=== PATIENT | female | born 1970 ===

== ENCOUNTER 2018-10-15 13:06 | Outpatient (CLI) | payer BC | END 2018-10-15 13:07 | disposition home or self-care (01) | LOC: RAD 13:06 ==

== ENCOUNTER 2018-11-07 03:17 | Emergency (ER) | payer BC ==
[2018-11-07 03:41] VITALS: RESP 18
[2018-11-07 04:02] LABS: PH,URINE 5.5 (4.7-8.0); URINE BILIRUBIN NEGATIVE (NEGATIVE); URINE BLOOD LARGE (NEGATIVE); URINE GLUCOSE (UA) 100 mg/dL (NEGATIVE); URINE LEUKOCYTE ESTERASE MODERATE Leu/uL (NEGATIVE); URINE PROTEIN 100 mg/dL (<30 mg/dL)
[2018-11-07 04:09] LABS: URINE APPEARANCE SL CLOUDY (CLEAR); URINE COLOR AMBER (YELLOW)
--- NOTE | 2018-11-07 04:14 | ED PDOC ---
Arrival/HPI - General Chief Complaint: Female Genitourinary Time Seen by Provider: 11/07/18 03:58 Historian: Patient - History of Present Illness Narrative History of Present Illness (Text): 11/07/18 04:13 Evelyn Contreras is a 48 year old female, whose past medical history includes asthma, who presents to the Emergency department accompanied by relative complaining of dysuria. Patient states, via relative acting as lap regulator, she has been experiencing dysuria with associated hematuria. Patient denies any fever, chills, nausea, vomiting, diarrhea, back pain, or any other complaints. Symptom Onset: Gradual Symptom Course: Unchanged Activities at Onset: Light Context: Home Past Medical History - Provider Review Nursing Documentation Reviewed: Yes - Infectious Disease Hx of Infectious Diseases: None - Reproductive Menopause: No Currently : No - Cardiac Hx Cardiac Disorders: No - Pulmonary Hx Respiratory Disorders: Yes Hx Asthma: Yes - Neurological Hx Neurological Disorder: No - HEENT Hx HEENT Disorder: No - Renal Hx Renal Disorder: No - Endocrine/Metabolic Hx Endocrine Disorders: No - Hematological/Oncological Hx Blood Disorders: No - Integumentary Hx Dermatological Disorder: No - Musculoskeletal/Rheumatological Hx Musculoskeletal Disorders: No - Gastrointestinal Hx Gastrointestinal Disorders: No - Genitourinary/Gynecological Hx Genitourinary Disorders: No - Psychiatric Hx Psychophysiologic Disorder: No Hx Substance Use: No - Surgical History Hx Hysterectomy: Yes Other/Comment: pt had complications with hysterectomy. pt needed bladder repair - Anesthesia Hx Anesthesia: Yes Hx Anesthesia Reactions: No Hx Malignant Hyperthermia: No Family/Social History - Physician Review Nursing Documentation Reviewed: Yes Family/Social History: Unknown Family HX Smoking Status: Never Smoked Hx Alcohol Use: No Hx Substance Use: No Allergies/Home Meds Allergies/Adverse Reactions: Allergies No Known Allergies Allergy (Verified 11/07/18 03:39) Review of Systems - Physician Review All systems were reviewed & negative as marked: Yes - Review of Systems Constitutional: Normal. absent: Fevers Eyes: Normal ENT: Normal Respiratory: Normal. absent: SOB, Cough Cardiovascular: Normal. absent: Chest Pain Gastrointestinal: Normal. absent: Abdominal Pain, Diarrhea, Nausea, Vomiting Genitourinary Female: Dysuria, Hematuria Musculoskeletal: Normal. absent: Back Pain, Neck Pain Skin: Normal. absent: Rash Neurological: Normal. absent: Headache, Dizziness Endocrine: Normal Hemo/Lymphatic: Normal Psychiatric: Normal Physical Exam Vital Signs Reviewed: Yes Vital Signs Temp Pulse Resp BP Pulse Ox 11/07/18 03:39 98.4 F 74 18 100/66 96 Temperature: Afebrile Blood Pressure: Normal Pulse: Regular Respiratory Rate: Normal Appearance: Positive for: Well-Appearing, Non-Toxic, Comfortable Pain Distress: None Mental Status: Positive for: Alert and Oriented X 3 - Systems Exam Head: Present: Atraumatic, Normocephalic Pupils: Present: PERRL Extroacular Muscles: Present: EOMI Conjunctiva: Present: Normal Mouth: Present: Moist Mucous Membranes Neck: Present: Normal Range of Motion Respiratory/Chest: Present: Clear to Auscultation, Good Air Exchange. No: Respiratory Distress, Accessory Muscle Use Cardiovascular: Present: Regular Rate and Rhythm, Normal S1, S2. No: Murmurs Abdomen: No: Tenderness, Distention, Peritoneal Signs Back: Present: Normal Inspection Upper Extremity: Present: Normal Inspection. No: Cyanosis, Edema Lower Extremity: Present: Normal Inspection. No: Edema Neurological: Present: GCS=15, CN II-XII Intact, Speech Normal Skin: Present: Warm, Dry, Normal Color. No: Rashes Psychiatric: Present: Alert, Oriented x 3, Normal Insight, Normal Concentration Medical Decision Making ED Course and Treatment: 11/07/18 04:13 Impression: 48 year old female complaining of dysuria and hematuria. Plan: -- Urinalysis, urine cultures -- Keflex -- Pyridium -- Reassess and disposition Prior Visits: Notes and results from previous visits were reviewed. Progress Notes: - Lab Interpretations Lab Results: Urine Color Jessy (YELLOW) 11/07/18 03:40 Urine Appearance Sl cloudy (CLEAR) 11/07/18 03:40 Urine pH 5.5 (4.7-8.0) 11/07/18 03:40 Ur Specific [place] >= 1.030 (1.005-1.035) 11/07/18 03:40 Urine Protein 100 mg/dL (<30 mg/dL) H 11/07/18 03:40 Urine Glucose (UA) 100 mg/dL (NEGATIVE) H 11/07/18 03:40 Urine Ketones Negative mg/dL (NEGATIVE) 11/07/18 03:40 Urine Blood Large (NEGATIVE) H 11/07/18 03:40 Urine Nitrate Positive (NEGATIVE) H 11/07/18 03:40 Urine Bilirubin Negative (NEGATIVE) 11/07/18 03:40 Urine Urobilinogen 4.0 E.U./dL (<1 E.U./dL) H 11/07/18 03:40 Ur Leukocyte Esterase Moderate Mar[place]/uL (NEGATIVE) H 11/07/18 03:40 - Scribe Statement The provider has reviewed the documentation as recorded by the Fabio Yusuf Provider Scribe Attestation: All medical record entries made by the Scribe were at my direction and personally dictated by me. I have reviewed the chart and agree that the record accurately reflects my personal performance of the history, physical exam, medical decision making, and the department course for this patient. I have also personally directed, reviewed, and agree with the discharge instructions and disposition. Disposition/Present on Arrival - Present on Arrival Any Indicators Present on Arrival: No History of DVT/PE: No History of Uncontrolled Diabetes: No Urinary Catheter: No History of Decub. Ulcer: No History Surgical Site Infection Following: None - Disposition Have Diagnosis and Disposition been Completed?: Yes Diagnosis: UTI (urinary tract infection) Disposition Time: 04:28 Condition: STABLE Discharge Instructions (ExitCare): Urinary Tract Infection, Adult (DC) Additional Instructions: Drink plenty of liquids/take meds as prescribed/follow up with your doctor this week Prescriptions: Cephalexin [cephalexin] 500 mg PO BID #14 cap Phenazopyridine [Pyridium] 200 mg PO TID #15 tab Forms: [employer] (Romanian)
[2018-11-07 04:37] VITALS: BP 110/68; PULSE 70; TEMP 98.2; O2SAT 97
[2018-11-07 04:45] LABS: URINE EPITHELIAL CELLS 0 - 2 /hpf (0-5); URINE RBC 15 - 20 /hpf (0-2)
[2018-11-07 04:46] LABS: URINE BACTERIA SMALL /hpf
== END 2018-11-07 04:45 | disposition short-term general hospital (02) ==
LOC: ED 03:17
DX: N39.0 Urinary tract infection, site not specified (principal)